=== PATIENT | male | born 1970 | race Two or more races ===

== ENCOUNTER → 2022-10-17 | Outpatient (CLI) | payer OTHER ==
[~2022-10-17] MED LIST: BUTAPT PO; IOHEXOL 180 MG/ML 20ML VIAL IJ ONE; LIDOCAINE 2%HCL (LOCAL ANESTH.) INJ 10ml MDV ONE; SUMA50TA2 PO; ZOFR4T PO
== END | disposition home or self-care (01) ==
LOC: XYW 09:11
DX: M47.816 Spondylosis without myelopathy or radiculopathy, lumbar region (principal); M43.26 Fusion of spine, lumbar region
CPT/HCPCS: 72132; 72265; 76000; J2001; Q9965

== ENCOUNTER 2022-10-20 10:37 | Emergency (ER) | payer OTHER ==
[~2022-10-20] VITALS: Ht 172.7 cm; Wt 120.0 kg
[2022-10-20 13:35] VITALS: BP 143/84
[2022-10-20] MEDS ORDERED: KETOROLAC TROMETH 30 MG/ML 1ML VIAL IV ONE (14:00)
[2022-10-20] MEDS ORDERED: SUMAtriptan SUCCINATE 6 MG/0.5 ML VL SC ONE (14:00)
[2022-10-20] MEDS ORDERED: ONDANSETRON HCL 4 MG/2 ML VIAL IV ONE (14:00)
[2022-10-20] MEDS ORDERED: SODIUM CHLORIDE 0.9% 1,000 ML IV ONE ×2 (14:00→15:00)
[2022-10-20 14:30] LABS: Basophils # (auto) 0 10 ^3/uL (0-0.2); Eosinophils # (auto) 0 10 ^3/uL (0-0.8); Lymphocytes # (auto) 1.2 10 ^3/uL (0.4-5.4); Monocytes # (auto) 0.4 10 ^3/uL (0-1.3); Neutrophils # (auto) 6.6 10 ^3/uL (1.6-8.6); Red Cell Distribution Width 15.3 % (11.8-14.3); White Blood Cell 8.3 10^3/uL (4.4-10.8)
[2022-10-20 14:32] LABS: Basophils % (auto) 0.4 % (0.0-2.0); Eosinophils % (auto) 0.4 % (0.0-7.0); Hematocrit 49.1 % (41.0-53.0); Hemoglobin 16.3 g/dL (13.5-17.5); Lymphocytes % (auto) 14.1 % (10.0-50.0); Mean Corpuscular Hemoglobin 26.7 pg (28.0-32.0); Mean Corpuscular Hgb Conc. 33.1 g/dL (32.0-36.0); Mean Corpuscular Volume 80.6 fL (80.0-100.0); Monocytes % (auto) 4.8 % (0.0-12.0); Neutrophils % (auto) 80.3 % (37.0-80.0); Nucleated Red Blood Cells % 0.2 %
[2022-10-20 14:48] LABS: Calcium 8.9 mg/dL (8.5-10.1); Potassium 4.5 mmol/L (3.5-5.1)
[2022-10-20 14:52] LABS: BUN/Creatinine Ratio 10.2 (10.0-20.0); Bilirubin, Total 0.5 mg/dL (0.2-1.0)
[2022-10-20] MEDS ORDERED: SUMA50TA2 PO (15:59)
[2022-10-20] MEDS ORDERED: ZOFR4T PO (15:59)
[2022-10-20] MEDS ORDERED: BUTAPT PO (15:59)
== END 2022-10-20 16:11 | disposition home or self-care (01) ==
LOC: ER 10:37
DX: G97.1 Other reaction to spinal and lumbar puncture (principal); I10 Essential (primary) hypertension; G89.29 Other chronic pain; Y84.4 Aspiration of fluid as the cause of abnormal reaction of the patient, or of later complication, without mention of misadventure at the time of the procedure
CPT/HCPCS: 36415; 70450; 80053; 85025; 96361; 96372; 96374; 96375; 99285; J1885; J2405; J3030; J7030

== ENCOUNTER 2024-10-21 08:13 | Emergency (ER) | payer MEDICAID, OTHER ==
[~2024-10-21] VITALS: Ht 172.7 cm; Wt 118.0 kg
[~2024-10-21 08:13] MED LIST changes: +BUTA-259 PO; -BUTAPT PO; -IOHEXOL 180 MG/ML 20ML VIAL IJ ONE; -LIDOCAINE 2%HCL (LOCAL ANESTH.) INJ 10ml MDV ONE
--- NOTE | 2024-10-21 08:41 | ED.PDOC ---
Musculoskeletal HPI Comments 54 year old male presents to the ED for the c/c of a Mechanical Fall injury. Pt states that he was at home playing with his dog when his dog suddenly "swept" he back leg from under him causing him to experience a mechanical fall. Pt notes on landing on his Right ankle and notes on a Fold and crack sensation. Swelling and Surrounding Erythema noted at this time. No other associated symptoms, modifiers, recent injuries or sick contacts present at this time. Chief Complaint: Lower Extremity Time Seen by MD: 08:36 Reviewed Notes: Nurses Notes, Medications, Allergies Allergies: Coded Allergies: NO KNOWN ALLERGIES (Unverified , 10/20/22) Home Meds Active Scripts Ondansetron Odt 4MG Tab (ZOFRAN PO) 4 Mg Tb, 4 MG PO BID, #20 TAB ODT TAB-DISSOLVE IN MOUTH, THEN SWALLOW Prov:LINA HERZOG 10/20/22 Olamxwxnrm-Sgszkzetvckbl-Tqcvi (FIORICET TABLET) 1 Tab Tb, 1 TAB PO TID, #30 TAB Prov:LINA HERZOG 10/20/22 Sumatriptan Succinate (Imitrex) 50 Mg Tab, 1 TAB PO TID, #30 TAB 1 Refill Prov:LINA HERZOG 10/20/22 Information Source: Patient Mode of Arrival: Wheelchair Location: Right Extremity Location: Ankle Timing: Hours Prehospital treatment: None Severity: Moderate Able to Move Extremity: Yes Bear Weight: No Pain: Moderate Hand Dominance: Right Mechanism: None Circumstances: Sporting Onset of Symptoms: After Trauma Symptoms: Swelling, Pain, Erythema, Warmth Last Tetanus: Unknown Associated signs and symptoms: Swelling, Weakness, Ankle pain Past Medical History PAST MEDICAL HISTORY: HTN Surgical History: Denies all surgeries Family History Family History: Reviewed,noncontributory to illness Social History Smoker: Non-Smoker Alcohol: Denies ETOH Use Drugs: Denies Drug Use Lives In: Home Constitutional: denies: chills, diaphoresis, fatigue, fever, malaise, sweats, weakness, others EENTM: denies: blurred vision, double vision, ear bleeding, ear discharge, ear drainage, ear pain, ear ringing, eye pain, eye redness, hearing loss, mouth pain, mouth swelling, nasal discharge, nose bleeding, nose congestion, nose pain, photophobia, tearing, throat pain, throat swelling, voice changes, others Respiratory: denies: cough, hemoptysis, orthopnea, SOB at rest, shortness of breath, SOB with excertion, stridor, wheezing, others Cardiovascular: denies: chest pain, dizzy spells, diaphoresis, Dyspnea on exertion, edema, irregular heart beat, left arm pain, lightheadedness, palpitations, PND, syncope, others Gastrointestinal: denies: abdomen distended, abdominal pain, blood streaked bowels, constipated, diarrhea, dysphagia, difficulty swallowing, hematemesis, melena, nausea, poor appetite, poor fluid intake, rectal bleeding, rectal pain, vomiting, others Genitourinary: denies: burning, dysuria, flank pain, frequency, hematuria, incontinence, penile discharge, penile sore, pain, testicle pain, testicle swelling, urgency, others Neurological: denies: dizziness, fainting, headache, left sided numbness, left sided weakness, numbness, paresthesia, pre-existing deficit, right sided numbness, right sided weakness, seizure, speech problems, tingling, tremors, weakness, others Musculoskeletal: reports: others (Ankle pain); denies: back pain, gout, joint pain, joint swelling, muscle pain, muscle stiffness, neck pain Integumetry: denies: bruises, change in color, change in hair/nails, dryness, laceration, lesions, lumps, rash, wounds, others Allergic/Immunocompromised: denies: Difficulty Healing, Frequent Infections, Hives, Itching, others Hematologic/Lymphatic: denies: anemia, blood clots, easy bleeding, easy bruising, swollen glands, others Endocrine: denies: excessive hunger, excessive sweating, excessive thirst, excessive urination, flushing, intolerance to cold, intolerance to heat, unexplained weight gain, unexplained weight loss, others Psychiatric: denies: anxiety, bipolar disorder, depression, hopeless, panic disorder, schizophrenia, sleepless, suicidal, others All Other Systems: Reviewed and Negative Physical Exam General Appearance: Mild Distress, Normal, Obese HEENT: Normal ENT Inspection, Pharynx Normal, TMs Normal Neck: Full Range of Motion, Non-Tender, Normal Respiratory: Chest Non-Tender, Lungs Clear, No Accessory Muscle Use, No Respiratory Distress, Normal Breath Sounds Cardiovascular: No Edema, No JVD, No Murmur, Normal Peripheral Pulses, Regular Rate/Rhythm Breast Exam: Deferred Gastrointestinal: Non Tender, No Pulsatile Mass, Normal Bowel Sounds, Soft Genitalia: Deferred Pelvic: Deferred Rectal: Deferred Extremities: No calf tenderness, Normal range of motion, Non-tender, No pedal edema Musculoskeletal : Location: Right Extremity Location: Ankle (Swelling, Tenderness upon palpitation, and Surrounding Erythema to the Right Ankle ) Apperance: Normal Neurologic: Alert, No Motor Deficits, Normal Mood Cerebellar Function: Normal Reflexes: Normal Skin: Dry, Normal Color, Warm Lymphatic: No Adenopathy Was a procedure done? Was a procedure done?: No Differential Diagnosis EXT Differential Diagnosis: Cellulitis, Fracture, Sprain, Dislocation, Contusion, Strain X-Ray, Labs, Meds, VS Vital Signs Date Time Temp Pulse Resp B/P (MAP) Pulse Ox O2 Delivery O2 Flow Rate FiO2 10/21/24 11:01 78 20 96 Room Air 10/21/24 11:01 98.9 78 20 138/90 (106) 96 98.9 10/21/24 09:11 98.4 81 16 133/67 (89) 95 98.4 Current Medications Medications (Trade) Dose Ordered Sig/Shay Route Start Time Stop Time Status Last Admin Acetaminophen/ Hydrocodone Bitart ([place] 5/325MG Tab) 1 tab ONCE ONCE PO 10/21/24 08:30 10/21/24 08:31 DC 10/21/24 09:49 PATIENT: CHANG OLIVARES ACCT: [id number] UNIT: [id number] : 1970 LOC: ER ROOM / BED: / AGE / SEX: 54 / M ADM STATUS: REG ER SERVICE 9 ORDERING PHYSICIAN: MAMI SCHWARTZ MD PROCEDURE(s): RANKL - R ANKLE 3 VIEW REASON: fall ORDER NUMBER(s): [id number], ACCESSION NUMBER(s): [id number] CLINICAL INDICATION: fall, pain TECHNIQUE: XY R ANKLE 3 VIEW Comparison: None FINDINGS/IMPRESSION: : Nondisplaced oblique fracture with intra-articular extension of the distal fibula. Ankle mortise intact. Lateral soft-tissue swelling. Time of 1ST Reevaluation: 09:07 Reevaluation 1ST: Unchanged Patient Education/Counseling: Diagnosis, Treatment Family Education/Counseling: No Family Present Departure 1 Departure Time of Disposition: 11:07 (Patient with a an ankle fracture. We will splint patient give patient crutches and have patient follow up with the Orthopedics.) Impression: Primary Impression: Fibula fracture Qualified Codes: S82.64XA - Nondisplaced fracture of lateral malleolus of right fibula, initial encounter for closed fracture Disposition: 01 HOME / SELF CARE / HOMELESS Condition: Stable Referrals: CK LAGUERRE MD Additional Instructions: You broke her ankle. You broke your distal fibula. You were splinted in the ER. You can use crutches as needed. For pain you can take: 8am: Ibuprofen 400mg with food Noon: Tylenol 1000mg 4pm: Ibprofen 400mg with food 8pm: Tylenol 1000mg You were referred to our orthopedic surgeon to ensure you are healing well. Please call for an appointment within one week. If your symptoms worsen or you have any other concerns then please return to the ER. Discharged With: Self Critical Care Note Critical Care Time?: No Stability Stability form required: No Heart Score Heart Score: Heart Score Response (Comments) Value History N/A 0 EKG N/A 0 Age N/A 0 Risk Factors N/A 0 Troponin N/A 0 Total 0 I personally scribed for MAMI SCHWARTZ MD ([email or web address]) on 10/21/24 at 08:41. Electronically submitted by Amilcar Rodríguez ([email or web address]). I personally scribed for MAMI SCHWARTZ MD ([email or web address]) on 10/21/24 at 09:26. Electronically submitted by Amilcar Rodríguez ([email or web address]). MAMI SCHWARTZ MD Oct 21, 2024 08:41
--- NOTE | 2024-10-21 09:20 | DVH ---
CLINICAL INDICATION: fall, pain TECHNIQUE: XY R ANKLE 3 VIEW Comparison: None FINDINGS/IMPRESSION: : Nondisplaced oblique fracture with intra-articular extension of the distal fibula. Ankle mortise intact. Lateral soft-tissue swelling.
[2024-10-21] MEDS: HYDROcodone-ACET 5/325MG TAB PO ONE (09:49)
[2024-10-21 11:01] VITALS: BP 138/90; PULSE 78; RESP 20; TEMP 98.9; O2SAT 96
== END 2024-10-21 11:44 | disposition home or self-care (01) ==
LOC: ER 08:13
DX: S82.491A Other fracture of shaft of right fibula, initial encounter for closed fracture (principal); I10 Essential (primary) hypertension; Z79.899 Other long term (current) drug therapy; W18.39XA Other fall on same level, initial encounter; Y93.89 Activity, other specified; Y92.89 Other specified places as the place of occurrence of the external cause; Y99.8 Other external cause status
CPT/HCPCS: 29515; 73610